=== PATIENT | male | born 1970 | race Caucasian/White ===

== ENCOUNTER 2016-11-10 16:52 | Emergency (ER) | payer BC ==
[~2016-11-10] VITALS: Ht 182.9 cm; Wt 113.4 kg
[2016-11-10] MEDS ORDERED: Tetanus/Diptheria/Pertussis Vaccine 0.5ml Syr IM ONE (17:15)
[2016-11-10] MEDS ORDERED: Bupivacaine 0.25% Inj 30ml INJ ONE (17:15)
[2016-11-10] MEDS ORDERED: Cephalexin 500mg cap ORAL ONE (17:15)
[2016-11-10] MEDS ORDERED: oxyCODONE HCL/Acetaminophen 5/325mg ORAL ONE (17:15)
[2016-11-10 18:15] VITALS: BP 139/83
[2016-11-10] MEDS ORDERED: Bacitracin Oint UD TOPIC ONE ×3 (19:15)
--- NOTE | 2016-11-10 19:19 | Emergency Room Report ---
History of Present Illness General Chief Complaint: Laceration Source: Patient Present Illness HPI Patient put his weight on vase to get up and it shattered and cut his L hand. He had some bleeding which was poorly controlled until coming to ED. He has significant pain which is sharp (10/10) and he feels there might be glass in the wounds. He denies numbness. Able to make fist. R handed. Tetanus > 10 years. No fever, URI, CP. He is anxious. Friend concerned about not prescribing opiates. 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 Nursing Documentation: PMH: Agreed, PSxH: Agreed Nursing Documentation-PMH Past Medical History: No Stated History Physical Exam Vital Signs Date Time Temp Pulse Resp B/P Pulse Ox O2 Delivery O2 Flow Rate FiO2 11/10/16 16:53 98.1 93 18 156/105 98 Room Air Sp02 EP Interpretation: reviewed, normal General Appearance: well appearing, no apparent distress, GCS 15 Head: normocephalic Eyes: bilateral eye PERRL, bilateral eye normal inspection ENT: moist mucus membranes Neck: supple Respiratory: no respiratory distress, speaking full sentences Cardiovascular #1: regular rate, rhythm Cardiovascular #2: 2+ radial (R) Gastrointestinal: normal inspection Musculoskeletal: back normal, gait/station normal, normal range of motion - profundus and superficialis, extensor tendons all tested normal, tender Neurologic: alert, oriented x3 Psychiatric: anxious Skin: warm/dry, other - some other smaller lacs without FBs found, not suturable, laceration - 2 on thumb and one on index finger Procedures Laceration/Wound Repair Laceration/Wound Repair : Consent: Verbal Wound Location: upper extremity Wound's Depth, Shape: linear, flap Wound Length (cm): 5 - 2.5 index, 1.5 and 2 thumb Wound Explored: clean Betadine Prep?: Yes Anesthesia: other - 0.25% bupivicaine Wound Debrided: minimal Wound Repaired With: sutures Suture Size/Type: 5:0, nylon Sterile Dressing Applied?: Yes Splint Applied?: Yes Type of Splint Applied: thumb spika Sling Applied?: Yes Patient Tolerated: Well Complications: None Progress < 30% thumb extensor tendon involved Bleeding controlled with tourniquets during suturing Difficulty with initial numbing however, finally anesthesia adequate Medical Decision Making Diagnostic Impression: Primary Impression: Finger laceration Qualified Codes: S61.211A - Laceration without foreign body of left index finger without damage to nail, initial encounter Additional Impression: Thumb laceration Qualified Codes: S61.012A - Laceration without foreign body of left thumb without damage to nail, initial encounter ER Course Patient with glass cuts L hand. DDx: lacerations, FBs, possible tendon involvement. Xray indicated, analgesics, keflex and tetanus. Exam against significant tendon or neurovasc injuries. Immediately wrapped and hemostasis obtained. Color good, CBC not indicated (hemodynamically stable). Xrays without FBs. Sutured. Evidence of partial thumb tendon involvement, though not needing surgery. Though he states sensory intact on index finger, area of cut suggestive may have some residual nerve involvement. Tolerated well. Splint and sling applied by tech - position excellent and neuro vasc intact ( allowing for anesthetic). Patient stable for outpatient observation and treatment. Other X-Ray Diagnostic Results Other X-Ray Diagnostic Results : X-Ray ordered: l hand # of Views/Limited Vs Complete: 3 View Indication: Other EP Interpretation: Yes Interpretation: no dislocation, no soft tissue swelling, no fractures, other - no FBs - lacerations apparent Impression: Other Interpreting ER Provider: signed Guido Carrasco MD Last Vital Signs Date Time Temp Pulse Resp B/P Pulse Ox O2 Delivery O2 Flow Rate FiO2 11/10/16 19:50 98.1 78 31 136/77 93 Room Air Status: improved Disposition: HOME, SELF-CARE Condition: Improved Scripts Bacitracin (Bacitracin) 28.4 Gm Oint...g. 1 APPLIC TOPIC BID, #10 GM Prov: Guido Carrasco M.D. 11/10/16 Ibuprofen* (MOTRIN*) 600 Mg Tablet 600 MG ORAL Q6H Y for For Pain, #20 TAB Prov: Guido Carrasco M.D. 11/10/16 Cephalexin* (KEFLEX*) 500 Mg Capsule 500 MG ORAL Q6H, #28 CAP 0 Refills Prov: Guido Carrasco M.D. 11/10/16 Referrals: NON PHYSICIAN (PCP) Guido Carrasco M.D. Nov 10, 2016 19:19
[2016-11-10] MEDS ORDERED: KEFLEX500 MG ORAL (19:22)
[2016-11-10] MEDS ORDERED: IBUPROFEN600 MG ORAL (19:22)
[2016-11-10] MEDS ORDERED: BACITRACIN15 GM TOPIC (19:22)
[2016-11-10 19:36] VITALS: BP 136/77
[2016-11-10 19:50] VITALS: BP 136/77
--- NOTE | 2016-11-11 14:07 | Diagnostic Imaging Report ---
Indications: Injury with laceration to left hand, pain Technique: 3 views left hand. Findings: Comparison: None Soft tissues of the base of the second finger are swollen with focal defect. No fracture, dislocation, joint space widening , body, or other acute changes are identified. IMPRESSION: Soft tissue laceration left second finger No fracture or foreign body.
== END 2016-11-10 19:50 | disposition home or self-care (01) ==
LOC: EMR 17:25
DX: S61.211A Laceration without foreign body of left index finger without damage to nail, initial encounter (principal); S61.012A Laceration without foreign body of left thumb without damage to nail, initial encounter; Z23 Encounter for immunization; W25.XXXA Contact with sharp glass, initial encounter; Y92.9 Unspecified place or not applicable
CPT/HCPCS: 12002; 73130; 90471; 90715; 96372; 99284; J3490

== ENCOUNTER 2019-11-10 20:41 | Emergency (ER) | payer BC, OTHER ==
[~2019-11-10] VITALS: Ht 182.9 cm; Wt 115.7 kg
[~2019-11-10 20:41] MED LIST: BACITRACIN15 GM TOPIC; IBUPROFEN600 MG ORAL; KEFLEX500 MG ORAL
--- NOTE | 2019-11-10 21:14 | Emergency Room Report ---
History of Present Illness General Chief Complaint: Lower Extremity Injury Source: Patient Present Illness HPI Disclaimer: Please note that this report is being documented using [employer] technology. This can lead to erroneous entry secondary to incorrect interpretation by the dictating instrument. HPI: 49-year-old male with a history of gout presents for evaluation of left foot pain. He reports pain over the ball of the foot and over the base of the toes on the dorsal aspect of the past 2 days. He thinks he stepped on something and twisted his ankle a few days ago but cannot recall the injury specifically. Pain with ambulation. He also has a history of plantar fasciitis but states this feels somewhat different. Took 800 mg of ibuprofen yesterday without improvement. Took naproxen today also without improvement. Denies swelling. States this is not like a typical gout attack. Denies fever, chills, pain in the ankle, numbness or tingling otherwise. 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 EOMI. Resp: Normal work of breathing Skin: Intact. No abrasions, laceration or rash over the exposed skin MSK: Normal tone and bulk. Moving all extremities. There is a gout deformity over the medial aspect of the interphalangeal joint on the left great toe. Tenderness palpation over the base of all toes on the plantar and dorsal aspect without overlying edema or deformity. No erythema, no fluctuant masses. Neuro: Awake and alert. Mentating appropriately Medical Decision Making Diagnostic Impression: Primary Impression: Foot pain ER Course 49-year-old male presents for evaluation of left foot pain. Differential includes was not limited to occult fracture, plantar fasciitis, contusion, infection, osteoarthritis, gout. X-rays obtained showed no evidence of acute bony fracture or other pathology aside from chronic deformity of the great toe consistent with gout. No evidence of acute active gout, infection or serious injury otherwise. Patient is able to ambulate. He was treated with Toradol and will be discharged on naproxen. Instructed him to follow a strict regimen to ensure optimal medication efficacy. To follow-up with PMD and return with new or worsening symptoms. He understands and agrees with the treatment plan. Last Vital Signs Date Time Temp Pulse Resp B/P (MAP) Pulse Ox O2 Delivery O2 Flow Rate FiO2 11/10/19 20:47 99.0 81 19 159/92 (114) 96 Room Air Disposition: HOME, SELF-CARE Condition: Stable Scripts Naproxen* (NAPROXEN*) 500 Mg Tablet 500 MG ORAL TWICE A DAY for 14 Days, #30 TAB Prov: Bud Nicole MD 11/10/19 Bud Nicole MD Nov 10, 2019 21:14
[2019-11-10] MEDS ORDERED: Ketorolac 30mg Inj IM ONE (21:45)
[2019-11-10] MEDS ORDERED: NAPROXEN500 M2 ORAL (21:45)
[2019-11-10 21:54] VITALS: BP 143/86
--- NOTE | 2019-11-11 11:16 | Diagnostic Imaging Report ---
EXAM: X-RAY XRAY Foot Complete L CLINICAL HISTORY: Foot pain. COMPARISON: None FINDINGS: Total of 3 views of the left foot were obtained. Alignment is anatomic. No acute fractures seen. There appears to be a degenerative changes of the first interphalangeal joint with adjacent soft tissue swelling. A moderate size calcaneal spur noted. Surrounding soft tissue is normal. IMPRESSION: NO FRACTURE OR MALALIGNMENT. CALCANEAL SPUR. DEGENERATIVE CHANGE OF THE FIRST INTERPHALANGEAL JOINT WITH ADJACENT SOFT TISSUE SWELLING.
== END 2019-11-10 21:54 | disposition home or self-care (01) ==
LOC: EMR 21:10
DX: M79.672 Pain in left foot (principal); I10 Essential (primary) hypertension; M10.9 Gout, unspecified
CPT/HCPCS: 73630; 96372; 99283; J1885